=== PATIENT | male | born 1955 | race Hispanic/Latino ===

== ENCOUNTER 2016-12-20 08:01 | Outpatient (CLI) | payer OTHER ==
[2016-12-20] MEDS ORDERED: XYLOCAINE TOPICAL 4% TP ONE (08:53)
[2016-12-20] MEDS ORDERED: SILVER NITRATE TP ONE ×2 (09:12→10:28)
== END 2016-12-20 08:02 | disposition home or self-care (01) ==
LOC: WOUND 08:01
PROVIDERS: ATTEND Surgery
DX: E11.621 Type 2 diabetes mellitus with foot ulcer (principal); L97.521 Non-pressure chronic ulcer of other part of left foot limited to breakdown of skin; E11.40 Type 2 diabetes mellitus with diabetic neuropathy, unspecified; I10 Essential (primary) hypertension; Z89.421 Acquired absence of other right toe(s); Z72.89 Other problems related to lifestyle
CPT/HCPCS: 11042; G0463

== ENCOUNTER 2017-01-03 07:36 | Outpatient (CLI) | payer OTHER ==
--- NOTE | 2017-01-04 11:52 | Vascular Lab Report ---
LEFT LOWER EXTREMITY ARTERIAL DUPLEX: REASON FOR EXAM: Peripheral arterial disease. COMMENTS ON THE RIGHT: Biphasic and triphasic waveforms are seen distally. Findings are consistent with relatively normal perfusion. Findings are consistent with the ability to heal distal wounds. COMMENTS ON THE LEFT: Triphasic waveforms are seen proximally. Biphasic and triphasic waveforms are seen in the superficial femoral artery and popliteal artery. Monophasic and biphasic waveforms are seen distally. There is a decrease in velocity from the popliteal to the posterior tibial artery (from 75 cm/s to 27 cm/s) and a doubling of velocity from the popliteal to the anterior tibial artery (75 cm/s to 156 cm/s). No focal significant plaque is identified. Findings are consistent with abnormal perfusion. Findings are compromised ability to heal distal wounds. IMPRESSION: RIGHT: Essentially normal arterial flow. LEFT:Abnormal perfusion with findings concerning for infrapopliteal arterial disease.
== END 2017-01-03 07:37 | disposition home or self-care (01) ==
LOC: VAS 07:36
PROVIDERS: ATTEND Surgery
DX: E11.621 Type 2 diabetes mellitus with foot ulcer (principal); L97.529 Non-pressure chronic ulcer of other part of left foot with unspecified severity; I73.9 Peripheral vascular disease, unspecified

== ENCOUNTER 2017-01-03 09:28 | Outpatient (CLI) | payer OTHER ==
[2017-01-03] MEDS ORDERED: XYLOCAINE TOPICAL 4% TP ONE (10:03)
[2017-01-03] MEDS ORDERED: SILVER NITRATE TP ONE (11:05)
== END 2017-01-03 09:29 | disposition home or self-care (01) ==
LOC: WOUND 09:28 → EDSTATUS 09:30
PROVIDERS: ATTEND Surgery
DX: E11.621 Type 2 diabetes mellitus with foot ulcer (principal); L97.521 Non-pressure chronic ulcer of other part of left foot limited to breakdown of skin; E11.40 Type 2 diabetes mellitus with diabetic neuropathy, unspecified; I10 Essential (primary) hypertension; Z89.421 Acquired absence of other right toe(s); Z72.89 Other problems related to lifestyle

== ENCOUNTER 2017-01-10 08:06 | Outpatient (CLI) | payer OTHER ==
[~2017-01-10 08:06] MED LIST: SILVER NITRATE TP ONE
== END 2017-01-10 08:07 | disposition home or self-care (01) ==
LOC: WOUND 08:06
PROVIDERS: ATTEND Surgery
DX: E11.621 Type 2 diabetes mellitus with foot ulcer (principal); L97.521 Non-pressure chronic ulcer of other part of left foot limited to breakdown of skin; E11.40 Type 2 diabetes mellitus with diabetic neuropathy, unspecified; E78.1 Pure hyperglyceridemia; I10 Essential (primary) hypertension; Z89.421 Acquired absence of other right toe(s); Z72.89 Other problems related to lifestyle

== ENCOUNTER 2017-01-17 08:05 | Outpatient (CLI) | payer OTHER ==
[2017-01-17] MEDS ORDERED: XYLOCAINE TOPICAL 4% TP ONE (08:25)
[2017-01-17] MEDS ORDERED: SILVER NITRATE TP ONE ×2 (08:47→11:37)
== END 2017-01-17 08:06 | disposition home or self-care (01) ==
LOC: WOUND 08:05
PROVIDERS: ATTEND Surgery
DX: E11.621 Type 2 diabetes mellitus with foot ulcer (principal); L97.521 Non-pressure chronic ulcer of other part of left foot limited to breakdown of skin; E11.40 Type 2 diabetes mellitus with diabetic neuropathy, unspecified; E78.1 Pure hyperglyceridemia; I10 Essential (primary) hypertension; Z89.421 Acquired absence of other right toe(s); Z72.89 Other problems related to lifestyle

== ENCOUNTER 2017-01-24 08:06 | Outpatient (CLI) | payer OTHER ==
[2017-01-24] MEDS ORDERED: XYLOCAINE TOPICAL 4% TP ONE ×2 (08:18→16:02)
== END 2017-01-24 08:07 | disposition home or self-care (01) ==
LOC: WOUND 08:06
PROVIDERS: ATTEND Surgery
DX: E11.621 Type 2 diabetes mellitus with foot ulcer (principal); L97.521 Non-pressure chronic ulcer of other part of left foot limited to breakdown of skin; I10 Essential (primary) hypertension; E11.40 Type 2 diabetes mellitus with diabetic neuropathy, unspecified; Z89.421 Acquired absence of other right toe(s); Z72.89 Other problems related to lifestyle

== ENCOUNTER 2017-01-31 08:05 | Outpatient (CLI) | payer OTHER | END 2017-01-31 08:06 | disposition home or self-care (01) | LOC: WOUND 08:05 | PROVIDERS: ATTEND Surgery | DX: E11.621 Type 2 diabetes mellitus with foot ulcer (principal); L97.521 Non-pressure chronic ulcer of other part of left foot limited to breakdown of skin; E11.40 Type 2 diabetes mellitus with diabetic neuropathy, unspecified; E78.1 Pure hyperglyceridemia; I10 Essential (primary) hypertension; Z89.411 Acquired absence of right great toe; Z72.89 Other problems related to lifestyle ==

== ENCOUNTER 2017-02-07 08:02 | Outpatient (CLI) | payer OTHER ==
[2017-02-07] MEDS ORDERED: SILVER NITRATE TP ONE ×2 (08:28→09:07)
== END 2017-02-07 08:03 | disposition home or self-care (01) ==
LOC: WOUND 08:02
PROVIDERS: ATTEND Surgery
DX: E11.621 Type 2 diabetes mellitus with foot ulcer (principal); L97.521 Non-pressure chronic ulcer of other part of left foot limited to breakdown of skin; E11.40 Type 2 diabetes mellitus with diabetic neuropathy, unspecified; E78.1 Pure hyperglyceridemia; I10 Essential (primary) hypertension; Z89.421 Acquired absence of other right toe(s); Z72.89 Other problems related to lifestyle

== ENCOUNTER 2017-02-14 08:01 | Outpatient (CLI) | payer OTHER | END 2017-02-14 08:02 | disposition home or self-care (01) | LOC: WOUND 08:01 | PROVIDERS: ATTEND Surgery | DX: E11.621 Type 2 diabetes mellitus with foot ulcer (principal); L97.521 Non-pressure chronic ulcer of other part of left foot limited to breakdown of skin; E78.1 Pure hyperglyceridemia; E11.40 Type 2 diabetes mellitus with diabetic neuropathy, unspecified; Z89.421 Acquired absence of other right toe(s); Z72.89 Other problems related to lifestyle ==

== ENCOUNTER 2017-02-21 08:01 | Outpatient (CLI) | payer OTHER | END 2017-02-21 08:02 | disposition home or self-care (01) | LOC: WOUND 08:01 | PROVIDERS: ATTEND Surgery | DX: E11.621 Type 2 diabetes mellitus with foot ulcer (principal); L97.521 Non-pressure chronic ulcer of other part of left foot limited to breakdown of skin; E11.40 Type 2 diabetes mellitus with diabetic neuropathy, unspecified; E78.1 Pure hyperglyceridemia; I10 Essential (primary) hypertension; Z89.421 Acquired absence of other right toe(s); Z72.89 Other problems related to lifestyle ==

== ENCOUNTER 2017-02-28 08:02 | Outpatient (CLI) | payer OTHER ==
[2017-02-28] MEDS ORDERED: XYLOCAINE TOPICAL 4% TP ONE (08:19)
== END 2017-02-28 08:03 | disposition home or self-care (01) ==
LOC: WOUND 08:02
PROVIDERS: ATTEND Surgery
DX: E11.621 Type 2 diabetes mellitus with foot ulcer (principal); L97.521 Non-pressure chronic ulcer of other part of left foot limited to breakdown of skin; E11.40 Type 2 diabetes mellitus with diabetic neuropathy, unspecified; L84 Corns and callosities; I10 Essential (primary) hypertension; E78.1 Pure hyperglyceridemia; Z72.89 Other problems related to lifestyle; Z89.421 Acquired absence of other right toe(s)

== ENCOUNTER 2017-03-14 07:55 | Outpatient (CLI) | payer OTHER | END 2017-03-14 07:56 | disposition home or self-care (01) | LOC: WOUND 07:55 | PROVIDERS: ATTEND Surgery | DX: E11.621 Type 2 diabetes mellitus with foot ulcer (principal); L97.521 Non-pressure chronic ulcer of other part of left foot limited to breakdown of skin; E11.40 Type 2 diabetes mellitus with diabetic neuropathy, unspecified; E78.1 Pure hyperglyceridemia; I10 Essential (primary) hypertension; Z89.421 Acquired absence of other right toe(s); Z72.89 Other problems related to lifestyle ==

== ENCOUNTER 2017-03-21 07:55 | Outpatient (CLI) | payer OTHER | END 2017-03-21 07:56 | disposition home or self-care (01) | LOC: WOUND 07:55 | PROVIDERS: ATTEND Surgery | DX: E11.621 Type 2 diabetes mellitus with foot ulcer (principal); L97.521 Non-pressure chronic ulcer of other part of left foot limited to breakdown of skin; E78.1 Pure hyperglyceridemia; E11.40 Type 2 diabetes mellitus with diabetic neuropathy, unspecified; I10 Essential (primary) hypertension; Z89.421 Acquired absence of other right toe(s); Z72.89 Other problems related to lifestyle ==

== ENCOUNTER 2017-03-28 07:57 | Outpatient (CLI) | payer OTHER | END 2017-03-28 07:58 | disposition home or self-care (01) | LOC: WOUND 07:57 | PROVIDERS: ATTEND Surgery | DX: E11.621 Type 2 diabetes mellitus with foot ulcer (principal); L97.521 Non-pressure chronic ulcer of other part of left foot limited to breakdown of skin; E11.40 Type 2 diabetes mellitus with diabetic neuropathy, unspecified; E78.1 Pure hyperglyceridemia; I10 Essential (primary) hypertension; Z89.431 Acquired absence of right foot; Z72.89 Other problems related to lifestyle ==

== ENCOUNTER 2017-04-04 08:00 | Outpatient (CLI) | payer OTHER | END 2017-04-04 08:01 | disposition home or self-care (01) | LOC: WOUND 08:00 | PROVIDERS: ATTEND Surgery | DX: E11.621 Type 2 diabetes mellitus with foot ulcer (principal); L97.521 Non-pressure chronic ulcer of other part of left foot limited to breakdown of skin; E11.40 Type 2 diabetes mellitus with diabetic neuropathy, unspecified; E78.1 Pure hyperglyceridemia; I10 Essential (primary) hypertension; Z89.421 Acquired absence of other right toe(s); Z72.89 Other problems related to lifestyle ==

== ENCOUNTER 2017-04-11 07:54 | Outpatient (CLI) | payer OTHER | END 2017-04-11 07:55 | disposition home or self-care (01) | LOC: WOUND 07:54 | PROVIDERS: ATTEND Surgery | DX: E11.621 Type 2 diabetes mellitus with foot ulcer (principal); L97.521 Non-pressure chronic ulcer of other part of left foot limited to breakdown of skin; E11.40 Type 2 diabetes mellitus with diabetic neuropathy, unspecified; E78.1 Pure hyperglyceridemia; I10 Essential (primary) hypertension; Z89.421 Acquired absence of other right toe(s); Z72.89 Other problems related to lifestyle ==

== ENCOUNTER 2017-04-18 08:04 | Outpatient (CLI) | payer OTHER | END 2017-04-18 08:05 | disposition home or self-care (01) | LOC: WOUND 08:04 | PROVIDERS: ATTEND Surgery | DX: E11.621 Type 2 diabetes mellitus with foot ulcer (principal); L97.521 Non-pressure chronic ulcer of other part of left foot limited to breakdown of skin; E11.40 Type 2 diabetes mellitus with diabetic neuropathy, unspecified; E78.1 Pure hyperglyceridemia; L84 Corns and callosities; I10 Essential (primary) hypertension; Z89.421 Acquired absence of other right toe(s); Z72.89 Other problems related to lifestyle ==

== ENCOUNTER 2017-04-25 08:21 | Outpatient (CLI) | payer OTHER | END 2017-04-25 08:22 | disposition home or self-care (01) | LOC: WOUND 08:21 | PROVIDERS: ATTEND Surgery | DX: E11.621 Type 2 diabetes mellitus with foot ulcer (principal); L97.521 Non-pressure chronic ulcer of other part of left foot limited to breakdown of skin; E11.40 Type 2 diabetes mellitus with diabetic neuropathy, unspecified; E78.1 Pure hyperglyceridemia; I10 Essential (primary) hypertension; Z89.421 Acquired absence of other right toe(s); Z72.89 Other problems related to lifestyle ==

== ENCOUNTER 2017-05-02 07:59 | Outpatient (CLI) | payer OTHER ==
[2017-05-02] MEDS ORDERED: SILVER NITRATE TP ONE ×2 (08:40→08:42)
== END 2017-05-02 08:00 | disposition home or self-care (01) ==
LOC: WOUND 07:59
PROVIDERS: ATTEND Surgery
DX: E11.621 Type 2 diabetes mellitus with foot ulcer (principal); L97.521 Non-pressure chronic ulcer of other part of left foot limited to breakdown of skin; E11.40 Type 2 diabetes mellitus with diabetic neuropathy, unspecified; E78.1 Pure hyperglyceridemia; I10 Essential (primary) hypertension; Z89.421 Acquired absence of other right toe(s)

== ENCOUNTER 2017-05-09 08:15 | Outpatient (CLI) | payer OTHER | END 2017-05-09 08:16 | disposition home or self-care (01) | LOC: WOUND 08:15 | PROVIDERS: ATTEND Surgery | DX: E11.621 Type 2 diabetes mellitus with foot ulcer (principal); L97.521 Non-pressure chronic ulcer of other part of left foot limited to breakdown of skin; E11.40 Type 2 diabetes mellitus with diabetic neuropathy, unspecified; E78.1 Pure hyperglyceridemia; I10 Essential (primary) hypertension; Z89.421 Acquired absence of other right toe(s) ==

== ENCOUNTER 2017-05-23 08:04 | Outpatient (CLI) | payer OTHER ==
[2017-05-23] MEDS ORDERED: XYLOCAINE TOPICAL 4% TP ONE ×2 (08:31→08:45)
== END 2017-05-23 08:05 | disposition home or self-care (01) ==
LOC: WOUND 08:04
PROVIDERS: ATTEND Nurse Practitioner
DX: E11.621 Type 2 diabetes mellitus with foot ulcer (principal); L97.521 Non-pressure chronic ulcer of other part of left foot limited to breakdown of skin; E11.40 Type 2 diabetes mellitus with diabetic neuropathy, unspecified; E78.1 Pure hyperglyceridemia; I10 Essential (primary) hypertension; Z89.421 Acquired absence of other right toe(s)
CPT/HCPCS: 11055; G0463; 99214; 99215

== ENCOUNTER 2017-05-30 08:05 | Outpatient (CLI) | payer OTHER | END 2017-05-30 08:06 | disposition home or self-care (01) | LOC: WOUND 08:05 | PROVIDERS: ATTEND Surgery | DX: E11.621 Type 2 diabetes mellitus with foot ulcer (principal); L97.521 Non-pressure chronic ulcer of other part of left foot limited to breakdown of skin; E11.43 Type 2 diabetes mellitus with diabetic autonomic (poly)neuropathy; L84 Corns and callosities; E78.1 Pure hyperglyceridemia; I10 Essential (primary) hypertension; Z89.421 Acquired absence of other right toe(s) | CPT/HCPCS: 99212; G0463 ==